=== PATIENT | male | born 1945 | race Caucasian/White ===

== ENCOUNTER 2016-12-28 06:39 | Inpatient (IN) ==
[2016-12-24 13:04] LABS: Basophils % 0.5 % (0.0-0.8); Hematocrit 38.3 VOL% (42.0-52.0); Hemoglobin 13.4 GM/DL (14.0-18.0); Lymphocytes # 2.3 10*3/uL (1.4-4.0); Lymphocytes % 37.6 % (21.2-54.2); Mean Corpuscular Hemoglobin 32 PG (27-34); Mean Corpuscular Volume 90.3 FL (87-102); Mean Platelet Volume 10.5 FL (9.6-12.0); Monocytes # 0.5 10*3/uL (0.11-0.8); Neutrophils # 3.3 10*3/uL (1.4-7.4); Neutrophils % 53.9 % (38.7-73.9); Platelet Count 169 T/CUMM (130-400); Red Blood Count 4.24 MC/CUMM (3.8-5.5); Red Cell Distribution Width 12.6 % (9.3-17.3); White Blood Count 6.1 T/CUMM (4-12)
[2016-12-24 13:36] LABS: Bilirubin,Total 0.7 MG/DL (0.2-1.0); Calcium 8.6 MG/DL (8.5-10.1); Osmolality,Calculated 274.8 MOS/KG (273-304); Potassium 4.6 MMOL/L (3.5-5.1); Total Protein 6.5 G/DL (6.4-8.3)
[2016-12-28] MEDS ORDERED: SODIUM CHLORIDE 0.9% 100 ML IV ONE (07:17)
[2016-12-28] MEDS ORDERED: VANCOMYCIN 500 MG VIAL ONE (07:17)
[2016-12-28] MEDS ORDERED: ceFAZolin 1,000 MG VIAL ONE (07:17)
[2016-12-28] MEDS ORDERED: HEPARIN 5,000 UNIT/1 ML VIAL ONE (07:17)
--- NOTE | 2016-12-28 07:52 | History and Physical Update ---
History and Physical Update - Dictation Physical: refer to scanned H&P - Physical Exam Heart: regular rate and rhythm Lung: clear to auscultation Abdomen: within normal limits Vitals: within normal limits (I did review the CT angiogram with Dr. Hirsch and agree with the high-grade right internal carotid artery stenosis. We discussed with the patient by telephone and has we had preoperatively he did wish to proceed with a right carotid endarterectomy understands risks and complications from we will proceed today)
--- NOTE | 2016-12-28 07:55 | EKG Report ---
Stationary ECG Study [facility] Test Date: 12/28/2016 7:53:30 AM Pat Name: PRINCESS CATES Department: Room: 612 Gender: M [employer] Cane [employer]er: [place] : 1945 Requested by: Steve Cisse Order Number: [id number] Reading MD: CINDY WALTON Intervals [place] Rate: 51 P: 36 NH: 161 QRS: 0 QRSD: 110 T: 4 QT: 441 QTc: 417 Interpretive Statements SINUS BRADYCARDIA NONSPECIFIC T-WAVE ABNORMALITY Electronically Signed On 12-28-16 08:00:53 CDT by CINDY WALTON [email or web address]
[2016-12-28] MEDS: LACTATED RINGERS 1,000 ML IV SCH ×3 (08:21→21:02)
[2016-12-28] MEDS ORDERED: GLUCAGON 1 MG VIAL IM PRN (10:18)
[2016-12-28] MEDS ORDERED: PROMETHAZINE 25 MG/1 ML VIAL IM PRN (10:18)
[2016-12-28] MEDS ORDERED: oxyCODONE/ACETAMINOPHEN 5-325 MG TABLET PO PRN (10:18)
[2016-12-28] MEDS ORDERED: DEXTROSE 50% 25 GM/50 ML VIAL IV PRN (10:18)
[2016-12-28] MEDS ORDERED: HYDROmorphone 2 MG/1 ML VIAL IV PRN (10:18)
[2016-12-28] MEDS ORDERED: ONDANSETRON 4 MG/2 ML VIAL IV PRN (10:18)
[2016-12-28] MEDS ORDERED: DOPamine 800 MG/250 ML PREMIX IV PRN (10:18)
[2016-12-28] MEDS ORDERED: NALOXONE 0.4 MG/ML VIAL IV PRN (10:18)
--- NOTE | 2016-12-28 10:18 | Operative Note ---
Date of procedure: 12/28/16 Procedure: Dr. Frost operative report Jeet Parr. Surgeon: Guillermo Anesthesia: Iliev general endotracheal Preoperative diagnosis: High-grade complex plaque of the right internal carotid artery. Postoperative diagnosis: Same Procedure: Right carotid endarterectomy with a bovine pericardial patch Indications for the procedure: Mr. Parr is a 71-year-old man who has a progressive plaque involving the origin of the right internal carotid artery I have offered a right carotid endarterectomy have explained the alternatives risks and complications which he understands and accepts Description of the procedure: After the induction of general endotracheal anesthesia the patient was placed in supine position his neck modestly extended and turned to the left. Right neck and upper chest were prepped with ChloraPrep and draped in the usual fashion. I began by making a skin incision in a skin crease below the angle of the mandible this was carried into the subplatysmal space and along the anterior border of the sternocleidomastoid muscle. Anterior facial vein and another large branch were ligated hemoclipped and divided. Patient had a good number of mildly dilated veins in the neck and had oozing from multiple sites that required extra time for control of initial hemostasis. Eventually was able to identify controlled the common carotid artery with a maxi vessel loop and the patient received 5000 units of intravenous heparin. I continued dissecting along the carotid arteries past the bifurcation separately controlling the external and internal carotid arteries above the plaque with Vesseloops. The hypoglossal nerve was identified and preserved. With adequate anticoagulation and brought the vessel loops open the artery from the common carotid through the diseased bifurcation to the more normal distal in internal carotid artery. I backflush then placed an in-line Girard-[place] shunt into the internal carotid backflush and placed into the common carotid to reestablish flow. Patient had exophytic plaque with a great deal of stenosis both at the origin of the internal carotid and further workup. Standard endarterectomy was carried out removing the diseased intima and media from the bifurcation it feathered out very well on both internal and external carotid arteries. Loose flaps of medial were removed under loupe magnification after the endarterectomized segment was copiously flushed with heparinized saline. Bovine pericardial patch 5-0 Prolene were used to close the arteriotomy removing the shunt and appropriate time backflushing internal and external carotid arteries and then re-irrigating with heparinized saline. With the arteriotomy closed flow was initiated from the common carotid into the external and then restored into the internal carotid artery. Good flow was noted by Doppler and both of the internal and external carotid arteries. Heparin was partially reversed with 25 mg of protamine. Due to the continued mild oozing of multiple sites I used Tisseel spray to further control hemostasis in the neck that became satisfactory. Incision was closed over quarter inch Kelly drain with a running 3-0 Monocryl skin clips on the skin. Blood loss is estimated at 200 cc sponge needle and instrument counts are correct and the patient was taken to the recovery room in stable condition. Surgeon / Physician: Nick Frost Results - Labs CBC & BMP: 12/24/16 12:55 12/24/16 12:55 Discharge Plan - Discharge Medications No Action [place]-3/Dha/Epa/Fish Oil [Fish Oil 1,000 mg Softgel] 1 each PO DAILY Dipyridamole [Persantine] 75 mg PO TID Cyanocobalamin Inj [Vitamin B12 Inj] 1,000 mcg IM Q30D metFORMIN [Glucophage] 500 mg PO DAILY W/BREAKFAST Valsartan 40 mg PO DAILY Citalopram [CeleXA] 40 mg PO DAILY Rosuvastatin Calcium [Crestor] 40 mg PO DAILY Aspirin 81 mg PO DAILY Omeprazole Magnesium [Prilosec Otc] 1 tablet PO DAILY - Follow Up or Referral - Forms/Instructions
[2016-12-28] MEDS ORDERED: MIDAZOLAM 2 MG/2 ML VIAL ONE (10:39)
[2016-12-28] MEDS ORDERED: GLYCOPYRROLATE 0.4 MG/2 ML VIAL ONE ×2 (10:42→10:45)
[2016-12-28] MEDS ORDERED: ONDANSETRON 4 MG/2 ML VIAL ONE (10:42)
[2016-12-28] MEDS ORDERED: KETOROLAC 30 MG/1 ML VIAL ONE (10:42)
[2016-12-28] MEDS ORDERED: ROCURONIUM 100 MG/10 ML VIAL IV ONE (10:43)
[2016-12-28] MEDS ORDERED: ACETAMINOPHEN 1,000 MG/100 ML VIAL IV ONE (10:43)
[2016-12-28] MEDS ORDERED: NEOSTIGMINE 10 MG/10 ML VIAL ONE (10:43)
[2016-12-28] MEDS ORDERED: HEPARIN/NACL 0.9% 2 UNITS/ML 500 ML IV ONE (10:44)
[2016-12-28] MEDS ORDERED: PROTAMINE SULFATE 50 MG/5 ML VIAL IV ONE (10:45)
[2016-12-28] MEDS ORDERED: NITROGLYCERIN DRIP 50 MG/250 ML BOTTLE IV ONE (10:45)
[2016-12-28] MEDS ORDERED: ETOMIDATE 20 MG/10 ML VIAL IV ONE (10:45)
[2016-12-28] MEDS ORDERED: HEPARIN 10,000 UNIT/10 ML VIAL ONE (10:45)
[2016-12-28] MEDS ORDERED: SEVOFLURANE 1 UNIT/15 MINUTE INH ONE (10:45)
[2016-12-28] MEDS ORDERED: LACTATED RINGERS 1,000 ML IV ONE (10:46)
[2016-12-28] MEDS ORDERED: SODIUM CHLORIDE 0.9% 1,000 ML IV ONE (10:46)
--- NOTE | 2016-12-28 10:55 | Anesthesia Post-Op ---
Anesthesia Post OP - Post Ansesthetic Evaluation Patient seen in post op: Yes Resp: within normal limits CV: within normal limits Mental: within normal limits Temp: within normal limits Upow-Da-Kjuinsmfr: within normal limits Nausea and Vomiting: within normal limits Pain: within normal limits
[2016-12-28] MEDS: CLOPIDOGREL 75 MG TABLET PO SCH (12:19)
[2016-12-28 15:29] LABS: Apearance,Urine CLEAR (Clear); Bacteria,Urine Occasional /HPF (Few); Bilirubin,Urine Negative (Negative); Blood, Urine Small mg/dL (Negative); Glucose,Urine (UA) Negative (Negative); Ketones,Urine Negative (Negative); Mucus,Urine Occasional /LPF (Occasional); Nitrite,Urine Negative (Negative); Protein,Urine Negative; RBC,Urine 2 /HPF (0-4); Urine Color Straw (Yellow); Urine Specific Gravity 1.005 (1.001-1.035); Urine Urobilinogen < 2.0 EU/DL (0.2-1.0); WBC,Urine 1 /HPF (0-6)
--- NOTE | 2016-12-28 16:52 | Event Note ---
Mr. Parr is awake alert oriented vital signs are reasonably good requiring a small amount of dopamine he has good left hand manager etl. His tongue is midline voice is normal facial asymmetry neck looks good with no hematoma. Did require catheter for voiding and we will leave it overnight.
[2016-12-28] MEDS: HYDROmorphone 2 MG/1 ML VIAL IV PRN (18:53)
[2016-12-29] MEDS: HYDROmorphone 2 MG/1 ML VIAL IV PRN ×2 (01:08→07:17)
[2016-12-29] MEDS: LACTATED RINGERS 1,000 ML IV SCH ×2 (06:45→11:16)
--- NOTE | 2016-12-29 07:59 | Event Note ---
Keshav is awake alert oriented neurologically intact neck looks good drain is been removed still running a little low blood pressure but should be able to move upstairs this morning and ambulate will consider discharge this afternoon
[2016-12-29] MEDS ORDERED: ASPIRIN CHEW 81 MG TABLET PO SCH (09:00)
[2016-12-29] MEDS ORDERED: VALSARTAN 80 MG TABLET PO SCH (09:00)
[2016-12-29] MEDS: ROSUVASTATIN 20 MG TABLET PO SCH (09:41)
[2016-12-29] MEDS: CLOPIDOGREL 75 MG TABLET PO SCH (09:42)
[2016-12-29] MEDS: CITALOPRAM 40 MG TABLET PO SCH (09:42)
[2016-12-29] MEDS: ASPIRIN EC 81 MG TABLET PO SCH (09:42)
--- NOTE | 2016-12-29 10:49 | Pathology Report from [facility] ---
ACCESSION # : [id number] PATIENT NAME : Jeet Cates ORDERING DR : GENNY RIVERS MD CLINICAL HX: RT carotid stenosis POST-OP DX: Same SPECIMEN INFO: RT carotid plaque GROSS DESCRIPTION: The specimen is received in formalin labeled with the patient 's name and consists of a yellow-red endarectomy measuring 4.0 x 1.2 cm in aggregate which is focally stenotic with areas of calcification seen. A medical office representative section submitted in one cassette following decalcification. DIAGNOSIS FOR JEET CATES: RIGHT CAROTID ENDARTERECTOMY: Calcified atheromatous plaque. SERVICE DATE: 12/28/2016 REPORT DATE: 12/29/2016 PATHOLOGIST: Ayaan Saleh M.D. [facility]
[2016-12-29] MEDS: oxyCODONE/ACETAMINOPHEN 5-325 MG TABLET PO PRN ×2 (11:51→20:34)
--- NOTE | 2016-12-29 11:51 | Cardiology Consult Note ---
Assessment and Plan - Time spent with patient Time spent with patient: Greater than 30 minutes (1) Status post carotid endarterectomy Status: Acute Assessment and plan: Patient is now status post carotid endarterectomy. Today is postop day #1. Patient is doing well. Hypotension has now resolved, no longer requiring dopamine infusion. Dr. Frost plans to transfer patient to [facility] and is considering discharging him home later today if he continues to do well. Further plan and addendum to follow per Dr. Muniz. Current Visit: Yes (2) Hypertension Status: Chronic Assessment and plan: Patient has been slightly hypotensive after carotid endarterectomy. We will hold his Diovan at this time. Will reinitiate this medication once his blood pressure allows. Current Visit: Yes (3) Diabetes Status: Chronic Assessment and plan: This is a new diagnosis. This seems to be relatively stable. Continue current plan of care. Current Visit: Yes (4) Dyslipidemia Status: Chronic Assessment and plan: Continue current plan of care with lipid lowering agent. Current Visit: Yes (5) GERD (gastroesophageal reflux disease) Status: Chronic Assessment and plan: This is clinically stable. Current Visit: Yes History of Present Illness - Data of Consult Patient: known to practice within the last 3 years Consult date: 12/29/16 Requesting Physician: Nick Frost Primary care physician: Taye Pham - Consult Narrative Reason for consult: Patient is known to Dr. Pham. Hypotension post endarterectomy History of present illness: Tube Maker: Dr. Pham Mr. Parr is a 71 year old male without known history of coronary artery disease, routinely followed by Dr. Pham. Patient was admitted to [facility] per Dr. Frost for planned endarterectomy. Patient has cardiac risk factors significant for diabetes, hypertension, dyslipidemia, family history of premature coronary artery disease advanced age. He reports that he is a lifetime non-smoker. He has a past medical history of CVA in 2007 , GERD and B12 deficiency. Patient was last seen by Dr. Pham October 2016. At that time, carotid Dopplers were ordered. This did reveal progressive carotid stenosis. Subsequently patient underwent CT angiogram of carotid arteries. Large and bulky calcified lesion was noted as well as the right carotid bifurcation in the common carotid artery that resulted in at least 90% diameter stenosis. Approximately 40% diameter stenosis was noted to the left common carotid artery. Dr. Frost was then consulted for surgical evaluation of patient's carotid artery stenosis. After seeing Dr. Li in consultation November 2016 carotid endarterectomy was then scheduled. Patient was admitted to [facility] January 02, 2017 for scheduled Right carotid endarterectomy with a bovine pericardial patch per Dr. Frost. He has done well postoperatively and is now in the ICU. He is postop day #1 today. Cardiology has been consulted at this time. Patient is known to Dr. Pham. He also had an episode of hypotension postoperatively and required dopamine infusion. Dopamine has now been weaned off and patient's blood pressure is stable. Dr. Frost plans for patient to be transferred up to [facility]. later today and is considering discharging him later this afternoon. Patient was seen and examined in the ICU. He is doing well postoperatively. Blood pressure remaining stable after dopamine infusion has been titrated off. He is awake, alert and oriented. Neurologically intact. Dressing to right neck is clean dry and intact. Patient denies chest pain, heaviness and tightness. He also denies shortness of breath. He confirms that he remains active at home and continues to work around the house and do yard work regularly. He tells me that he can perform these activities without experiencing any type of chest pain, heaviness and tightness. He also denies any recent change in his exercise tolerance and breathing. He denies dyspnea on exertion and easy fatigability. He appears to be stable from a cardiology standpoint. Will continue to follow patient and make adjustments in his medical therapy as needed. Further plan and addendum to follow per Dr. Muniz. Active Medications Aspirin () 81 mg PO DAILY [facility] Last Admin: 12/29/16 09:42 Dose: 81 mg Citalopram Hydrobromide (Celexa) 40 mg PO DAILY [facility] Last Admin: 12/29/16 09:42 Dose: 40 mg Clopidogrel Bisulfate (Plavix) 75 mg PO DAILY [facility] Last Admin: 12/29/16 09:42 Dose: 75 mg Dextrose/Water (D50) 25 gm IV PRN PRN PRN Reason: Hypoglycemia with IV access Glucagon () 1 mg IM PRN PRN PRN Reason: Hypoglycemia w/o IV access Hydromorphone HCl (Dilaudid Inj) 0.5 mg IV Q2H PRN PRN Reason: Pain Moderate to Severe (4-10) Last Admin: 12/29/16 07:17 Dose: 0.5 mg Hydromorphone HCl (Dilaudid Inj) 1 mg IV Q2H PRN PRN Reason: Pain Severe (8-10) Lactated Ringer's (Lr) 1,000 mls @ 20 mls/hr IV .Q24H [facility] Last Admin: 12/29/16 11:16 Dose: Not Given Dopamine HCl/Dextrose () 800 mg in 250 mls @ 8.294 mls/hr IV TITRATE PRN; Protocol; 5 MCG/KG/MIN PRN Reason: to keep SBP 110-170 Last Titration: 12/29/16 06:15 Dose: 2 mcg/kg/min, 3.319 mls/hr Lactated Ringer's (Lr) 1,000 mls @ 100 mls/hr IV .Q10H [facility] Last Admin: 12/29/16 06:45 Dose: 100 mls/hr Naloxone HCl (Narcan) 0.4 mg IV Q2M PRN PRN Reason: Nasal Congestion Ondansetron HCl (Zofran Inj) 4 mg IV Q4H PRN PRN Reason: Nausea/Vomiting Oxycodone/Acetaminophen (Percocet 5-325) 1 tablet PO Q6H PRN PRN Reason: Pain Mild to Moderate (1-7) Last Admin: 12/28/16 17:52 Dose: 1 tablet Oxycodone/Acetaminophen (Percocet 5-325) 2 tablet PO Q6H PRN PRN Reason: Pain Moderate (4-7) Last Admin: 12/29/16 11:51 Dose: 2 tablet Pneumococcal 13-Valent Conj Vacc (Prevnar 13) 0.5 ml IM .ONCE ONE Stop: 12/29/16 13:01 Promethazine HCl (Phenergan Inj) 25 mg IM Q4H PRN PRN Reason: N/V unrelieved with Zofran Rosuvastatin Calcium (Crestor) 40 mg PO DAILY [facility] Last Admin: 12/29/16 09:41 Dose: 40 mg Valsartan (Diovan) 40 mg PO DAILY [facility] Last Admin: 12/29/16 09:42 Dose: Not Given CC: Nick Frost MD - Home Medications and Allergies Home Medications: Home Medications Medication Instructions Recorded Confirmed Type Aspirin 81 mg PO DAILY 12/24/16 12/28/16 History Citalopram [CeleXA] 40 mg PO DAILY 12/24/16 12/28/16 History Cyanocobalamin Inj [Vitamin B12 1,000 mcg IM Q30D 12/24/16 12/28/16 History Inj] Dipyridamole [Persantine] 75 mg PO TID 12/24/16 12/28/16 History [place]-3/Dha/Epa/Fish Oil [Fish Oil 1 each PO DAILY 12/24/16 12/28/16 History 1,000 mg Softgel] Omeprazole Magnesium [Prilosec Otc] 1 tablet PO DAILY 12/24/16 12/28/16 History Rosuvastatin Calcium [Crestor] 40 mg PO DAILY 12/24/16 12/28/16 History Valsartan 40 mg PO DAILY 12/24/16 12/28/16 History metFORMIN [Glucophage] 500 mg PO DAILY W/BREAKFAST 12/24/16 12/28/16 History Allergies/Adverse Reactions: Allergies Allergy/AdvReac Type Severity Reaction Status Date / Time No Known Allergies Allergy Verified 12/28/16 07:25 - Constitutional Constitutional: Absent: chills, fatigue, fever(s), lethargy, malaise, weakness, weight gain, weight loss - Cardiovascular Cardiovascular: Present: as per HPI. Absent: chest pain at rest, chest pain with activity, claudication, diaphoresis, dyspnea, dyspnea on exertion, edema, radiating jaw, neck or arm pain, lightheadedness, orthopnea, palpitations, PND - Respiratory Respiratory: Absent: dyspnea, hemoptysis, dyspnea on exertion, wheezing, snoring , pain on inspiration, change in phlegm color - Gastrointestinal Gastrointestinal: Absent: abdominal pain, change in bowel habits, diarrhea, hematemesis, hematochezia, melena, nausea, vomiting - Neurological Neurological: Absent: abnormal gait, abnormal speech, behavioral changes, frequent falls, syncope - Hematologic/Lymphatic Hematologic/Lymphatic: Absent: easy bleeding, easy bruising, lymphadenopathy Medical,Surgical,& Family Hx - Medical History Cardio: History of: Hypertension Psychological: History of: Anxiety Disorders Neurology: History of: Cerebrovascular Accident (9 years ago weakness right side) No history of: Seizures HEENT: History of: Eye Problem (cataracts) Endocrine: History of: Diabetes Mellitus (NIDDM) (recent diagnosis), Dyslipidemia Genitourinary: History of: Problems (urinary hesitancy) Gastrointestinal: History of: GERD Reproductive: Reports: Reproductive Problems (erectile dysfunction) - Surgical History Cardiac Surgeries: Patient Denies: Cardiac Surgery Thoracic Surgeries: Patient denies;: Organ Transplant Neurologic Surgeries: Patient denies: Neurologic Surgery HEENT Surgeries: Surgical HX of: Carotid Endarterectomy (December 2016), Tonsilectomy & Adenoidectomy Patient denies: Thyroid Surgery Abdominal Surgeries: Surgical HX of: Colonoscopy Reproductive Surgeries: Patient denies;: Genitourinary Surgery - Family History Family History: Reports;: Family Heart Disease (brother) Denies;: Family Diabetes - Social History Smoking Status: Never smoker Frequency of Alcohol Use: None Type of Drug Use: None Physical Examination Vital Signs Temp Pulse Resp BP Pulse Ox 97.6 F 58 L 18 132/79 99 12/28/16 07:42 12/28/16 07:42 12/28/16 07:42 12/28/16 07:42 12/28/16 07:42 General: Present: Appears Well, No Apparent Distress Neck: Present: Supple Neck, Midline Trachea, No JVD/HJR Cardiac: Present: Reg Rate and Rhythm, Regular Rate, Regular Rhythm, S1/S2, No Murmur. Absent: Gallop Lungs: Present: Normal Exam, Clear Ascult./Percussion, Normal Breath Sounds, No Wheeze, Rales, Rhonchi Neuro: Present: Cranial Nerve 2-12 Intact, Grossly Intact Abdomen: Present: Soft, Active Bowel Sounds, Non-Tender. Absent: Firm, Distended Skin: Present: Clear, Other (Dressing to right neck is clean dry and intact.). Absent: Rash, Suspicious Lesions, Ulceration Gait: Present: Normal Gait Extremities: Present: Normal Gait, No Clubbing, No Cyanosis, No Edema, Normal Upper Extr. Pulses, Normal Lower Extr. Pulses Result/EKG - Labs CBC & BMP: 12/24/16 12:55 12/24/16 12:55 Lab Results: I have reviewed the past 24 hour labs Labs: Laboratory Results - last 24 hr 12/28/16 12/28/16 12/29/16 12:07 15:00 08:56 POC Glucose 145 H 173 H Urine Color Straw Urine Appearance Clear Urine pH 7.0 Ur Specific [place] 1.005 Urine Protein Negative Urine Glucose (UA) Negative Urine Ketones Negative Urine Blood Small Urine Nitrate Negative Urine Bilirubin Negative Urine Urobilinogen < 2.0 H Urine Leukocytes Negative Urine RBC 2 Urine WBC 1 Urine Bacteria Occasional Urine Mucus Occasional Ur Culture Indicated? Not indicated Quality Measures - VTE Contraindication to Pharmacological VTE Prophylaxis: High Risk of Bleeding
[2016-12-29] MEDS: PANTOPRAZOLE 40 MG TABLET PO SCH (12:28)
[2016-12-29] MEDS ORDERED: PNEUMOCOCCAL VACCINE (13 VALENT) 0.5 ML SYRINGE IM ONE (13:00)
[2016-12-30 07:14] VITALS: BP 113/68
[2016-12-30] MEDS: PANTOPRAZOLE 40 MG TABLET PO SCH (08:48)
[2016-12-30] MEDS: ASPIRIN EC 81 MG TABLET PO SCH (08:48)
[2016-12-30] MEDS: CLOPIDOGREL 75 MG TABLET PO SCH (08:48)
[2016-12-30] MEDS: ROSUVASTATIN 20 MG TABLET PO SCH (08:48)
[2016-12-30] MEDS: CITALOPRAM 40 MG TABLET PO SCH (08:48)
--- NOTE | 2016-12-30 09:38 | Discharge Summary ---
Hospital Course - Hospital Course Hospital Course: Jeet Parr a 71-year-old man who was found to have a markedly increased stenosis of his right internal carotid artery with significant alteration of his plaque. He was admitted and has undergone a right carotid endarterectomy and is recovered quite nicely he is ambulatory neurologically intact is no significant hematoma vital signs are in good condition. He is ready for discharge and I discussed with him and his extensively his wound care exercise restrictions medications diet and I will plan to see him in the office next week for staple removal. I note that he was on Persantine 75 mg 3 times daily prior to admission I am going to change that to 75 mg twice daily and continue the 81 mg aspirin. I will see him next Tuesday for staple removal Specialty Discharge - Follow Up or Referrals Follow up with: Nick Frost MD [Physician] - 01/03/17 3:00 pm Discharge Plan - Discharge Data Disposition: Disch To Home/Self Care Condition at Discharge: Stable Discharge Diet: diabetic diet Activity: resume usual activities as tolerated Hygiene: may shower Weight Bearing at Discharge: full weight bearing Driving: not until seen by doctor Contact your physician if you experience:: fever over 101, Nausea/Vomiting, Bleeding - Discharge Medications New oxyCODONE/ACETAMINOPHEN 5-325 [Percocet 5-325] 1 tablet PO Q6H PRN #10 tablet PRN Reason: Pain Mild To Moderate (1-7) Continue [place]-3/Dha/Epa/Fish Oil [Fish Oil 1,000 mg Softgel] 1 each PO DAILY Cyanocobalamin Inj [Vitamin B12 Inj] 1,000 mcg IM Q30D metFORMIN [Glucophage] 500 mg PO DAILY W/BREAKFAST Citalopram [CeleXA] 40 mg PO DAILY Rosuvastatin Calcium [Crestor] 40 mg PO DAILY Aspirin 81 mg PO DAILY Omeprazole Magnesium [Prilosec Otc] 1 tablet PO DAILY Changed Dipyridamole [Persantine] 75 mg PO BID #0 Discontinued Valsartan 40 mg PO DAILY - Follow Up or Referral Follow Up: Nick Frost MD [Physician] - 01/03/17 3:00 pm - Forms/Instructions Instructions: Carotid Endarterectomy (DC) Exam - Constitutional Vitals: Period Temp Pulse Resp BP Sys/Uribe Pulse Ox Last 24 Hr 97.3 F-98.8 F 51-88 16-20 95-148/48-73 92-97 DS: Provider Date of admission: 12/28/16 06:39 Primary care physician: Laurent Mulligan DO Attending physician on admission: Nick Frost MD Consults: 12/28/16 16:53 Consult to Physician [CONS] Routine Comment: patient known to you Consulting Provider: Jacinto France Discharging clinician: Nick Frost MD
--- NOTE | 2016-12-30 09:58 | Cardiology Progress Note ---
Assessment and Plan - Time spent with patient Time spent with patient: Less than 30 minutes (1) Status post carotid endarterectomy Status: Acute Current Visit: Yes (2) Hypertension Status: Chronic Current Visit: Yes (3) Diabetes Status: Chronic Current Visit: Yes (4) Dyslipidemia Status: Chronic Current Visit: Yes (5) GERD (gastroesophageal reflux disease) Status: Chronic Current Visit: Yes Cardiology - PN: Subj Interval history: I am seeing for Dr. Muniz today. The patient is anticipating discharge later he has no complaints. His vital signs are stable. He is postop day 1 status post right carotid endarterectomy. No neurological deficits states he feels good. Exam (Progress Note) - Constitutional Vitals: Period Temp Pulse Resp BP Sys/Uribe Pulse Ox Last 24 Hr 97.3 F-98.8 F 51-88 16-20 95-148/48-73 92-97 General appearance: over weight - Respiratory Respiratory exam: Present: clear to auscultation bilaterally - Cardiovascular Cardiovascular exam: Present: regular rate and rhythm - GI/Abdominal GI/Abdominal exam: Present: normal bowel sounds Result/EKG - Labs CBC & BMP: 12/24/16 12:55 12/24/16 12:55 Quality Measures - VTE Contraindication to Pharmacological VTE Prophylaxis: High Risk of Bleeding Specialty Discharge - Follow Up or Referrals Follow up with: Nick Frost MD [Physician] - 01/03/17 3:00 pm
== END 2016-12-30 10:00 | disposition home or self-care (01) | DRG 39 ==
LOC: N.SDSINP 06:39 → N.ICU 11:06 → N.3E 12-29 14:13
PROVIDERS: ADMIT Surgery; ATTEND Surgery

== ENCOUNTER 2018-01-03 05:50 | Inpatient (IN) ==
[2017-12-29 09:13] LABS: Basophils % 0.6 % (0.0-0.8); Eosinophils # 0.1 10*3/uL (0.0-0.87); Hematocrit 37.8 VOL% (42.0-52.0); Hemoglobin 13.3 GM/DL (14.0-18.0); Immature Granulocytes % 0.2 %; Immature Granulocytes Absolute 0.01 #; Lymphocytes # 1.9 10*3/uL (1.4-4.0); Lymphocytes % 37.9 % (21.2-54.2); Mean Corpuscular HGB Conc 35.2 GM/DL (32-36); Mean Corpuscular Hemoglobin 31 PG (27-34); Mean Corpuscular Volume 88.7 FL (87-102); Mean Platelet Volume 10.4 FL (9.6-12.0); Monocytes # 0.5 10*3/uL (0.11-0.8); Monocytes % 9.2 % (1.7-12.7); Neutrophils # 2.6 10*3/uL (1.4-7.4); Neutrophils % 51.1 % (38.7-73.9); Platelet Count 176 T/CUMM (130-400); Red Blood Count 4.26 MC/CUMM (3.8-5.5); Red Cell Distribution Width 12.7 % (9.3-17.3); White Blood Count 5.1 T/CUMM (4-12)
[2017-12-29 09:34] LABS: Albumin 3.9 G/DL (3.4-5.0); Bilirubin,Total 0.6 MG/DL (0.2-1.0); Calcium 8.3 MG/DL (8.5-10.1); Osmolality,Calculated 278.5 MOS/KG (273-304); Potassium 4.7 MMOL/L (3.5-5.1); Total Protein 6.4 G/DL (6.4-8.3)
[2018-01-03] MEDS ORDERED: ERTAPENEM 1,000 MG in SODIUM CHLORIDE 0.9% 100 ML IV ONE ×2 (06:00→07:00)
[2018-01-03] MEDS ORDERED: LACTATED RINGERS 1,000 ML IV SCH (06:00)
[2018-01-03] MEDS ORDERED: ALVIMOPAN 12 MG CAPSULE ONE (06:23)
[2018-01-03] MEDS ORDERED: ALVIMOPAN 12 MG CAPSULE PO SCH (07:00)
[2018-01-03] MEDS ORDERED: TISSUE ADHESIVE 1 EACH APPLICATOR TOP ONE (09:33)
[2018-01-03] MEDS ORDERED: DESFLURANE 1 UNIT/15 MINUTE INH ONE (10:13)
[2018-01-03] MEDS ORDERED: PROPOFOL 200 MG/20 ML VIAL IV ONE (10:13)
[2018-01-03] MEDS ORDERED: fentaNYL 100 MCG/2 ML VIAL ONE (10:14)
[2018-01-03] MEDS ORDERED: ROCURONIUM 100 MG/10 ML VIAL IV ONE (10:14)
[2018-01-03] MEDS ORDERED: MIDAZOLAM 2 MG/2 ML VIAL ONE (10:14)
[2018-01-03] MEDS ORDERED: ACETAMINOPHEN 1,000 MG/100 ML VIAL IV ONE (10:14)
[2018-01-03] MEDS ORDERED: GLYCOPYRROLATE 0.4 MG/2 ML VIAL ONE (10:14)
[2018-01-03] MEDS ORDERED: ONDANSETRON 4 MG/2 ML VIAL ONE ×2 (10:14→10:48)
[2018-01-03] MEDS ORDERED: DEXAMETHASONE 10 MG/1 ML VIAL ONE (10:14)
[2018-01-03] MEDS ORDERED: NEOSTIGMINE 10 MG/10 ML VIAL ONE (10:15)
[2018-01-03] MEDS ORDERED: LACTATED RINGERS 1,000 ML IV ONE (10:15)
[2018-01-03] MEDS ORDERED: HYDROmorphone 2 MG/1 ML VIAL IV PRN ×2 (10:24→11:44)
[2018-01-03] MEDS ORDERED: ONDANSETRON 4 MG/2 ML VIAL IV PRN ×2 (10:24→11:44)
[2018-01-03] MEDS ORDERED: MEPERIDINE 25 MG/1 ML VIAL IV PRN (10:24)
[2018-01-03] MEDS ORDERED: MEPERIDINE 25 MG/1 ML VIAL ONE (10:48)
[2018-01-03] MEDS ORDERED: LIDOCAINE 2% TOP JELLY 20 ML VIAL INTRAURETH ONE (10:48)
[2018-01-03] MEDS: LACTATED RINGERS 1,000 ML IV SCH ×2 (11:21→19:03)
[2018-01-03] MEDS ORDERED: PROMETHAZINE 25 MG/1 ML VIAL IM PRN (11:44)
[2018-01-03 12:19] LABS: Basophils % 0.2 % (0.0-0.8); Hematocrit 37.9 VOL% (42.0-52.0); Hemoglobin 13.7 GM/DL (14.0-18.0); Immature Granulocytes % 0.3 %; Immature Granulocytes Absolute 0.04 #; Lymphocytes # 1.4 10*3/uL (1.4-4.0); Lymphocytes % 11.7 % (21.2-54.2); Mean Corpuscular HGB Conc 36.1 GM/DL (32-36); Mean Corpuscular Hemoglobin 32 PG (27-34); Mean Corpuscular Volume 87.1 FL (87-102); Mean Platelet Volume 10.8 FL (9.6-12.0); Monocytes # 0.5 10*3/uL (0.11-0.8); Monocytes % 4.1 % (1.7-12.7); Neutrophils # 10.3 10*3/uL (1.4-7.4); Neutrophils % 83.7 % (38.7-73.9); Platelet Count 181 T/CUMM (130-400); Red Blood Count 4.35 MC/CUMM (3.8-5.5); Red Cell Distribution Width 12.8 % (9.3-17.3); White Blood Count 12.3 T/CUMM (4-12)
[2018-01-03] MEDS: KETOROLAC 15 MG/1 ML VIAL IV SCH ×3 (12:23→23:44)
[2018-01-03 12:59] LABS: Band Neutrophils 3 % (0-10); Lymphocytes 16 % (20-55); Segmented Neutrophils 81 % (50-85); Total Cells Counted 100
[2018-01-03 13:01] LABS: Platelet Estimate Adequate
[2018-01-03] MEDS ORDERED: diphenhydrAMINE 50 MG/1 ML VIAL IV PRN (19:13)
[2018-01-03] MEDS: ALVIMOPAN 12 MG CAPSULE PO SCH (20:30)
[2018-01-04] MEDS: LACTATED RINGERS 1,000 ML IV SCH (03:03)
[2018-01-04 03:08] LABS: Basophils % 0.1 % (0.0-0.8); Hematocrit 34.4 VOL% (42.0-52.0); Hemoglobin 12.1 GM/DL (14.0-18.0); Immature Granulocytes % 0.5 %; Immature Granulocytes Absolute 0.06 #; Lymphocytes # 1.4 10*3/uL (1.4-4.0); Lymphocytes % 12.3 % (21.2-54.2); Mean Corpuscular HGB Conc 35.2 GM/DL (32-36); Mean Corpuscular Hemoglobin 31 PG (27-34); Mean Corpuscular Volume 88.7 FL (87-102); Mean Platelet Volume 10.8 FL (9.6-12.0); Monocytes # 1.1 10*3/uL (0.11-0.8); Monocytes % 9.3 % (1.7-12.7); Neutrophils # 8.9 10*3/uL (1.4-7.4); Neutrophils % 77.8 % (38.7-73.9); Platelet Count 171 T/CUMM (130-400); Red Blood Count 3.88 MC/CUMM (3.8-5.5); Red Cell Distribution Width 12.9 % (9.3-17.3); White Blood Count 11.4 T/CUMM (4-12)
[2018-01-04 03:36] LABS: Calcium 8.3 MG/DL (8.5-10.1); Osmolality,Calculated 283.4 MOS/KG (273-304); Potassium 4.2 MMOL/L (3.5-5.1)
[2018-01-04] MEDS ORDERED: ENOXAPARIN 40 MG/0.4 ML SYRINGE SUBCUT SCH (04:06)
[2018-01-04] MEDS: KETOROLAC 15 MG/1 ML VIAL IV SCH ×2 (05:11→12:59)
[2018-01-04] MEDS ORDERED: OMEGA 3 ACID ETHYL ESTERS 1 GM CAPSULE PO SCH (09:00)
[2018-01-04] MEDS ORDERED: ROSUVASTATIN 20 MG TABLET PO SCH (09:00)
[2018-01-04] MEDS ORDERED: CITALOPRAM 40 MG TABLET PO SCH (09:00)
[2018-01-04] MEDS ORDERED: ASPIRIN CHEW 81 MG TABLET PO SCH (09:00)
[2018-01-04] MEDS ORDERED: PANTOPRAZOLE 40 MG TABLET PO SCH (09:00)
[2018-01-04] MEDS: ALVIMOPAN 12 MG CAPSULE PO SCH (10:18)
[2018-01-04 11:16] VITALS: BP 147/68
== END 2018-01-04 12:58 | disposition home or self-care (01) | DRG 330 ==
LOC: N.OR 05:50 → N.SDSINP 05:51 → N.3E 11:21
PROVIDERS: ADMIT Surgery; ATTEND Surgery